=== PATIENT | female | born 1975 | race African-American/Black ===

== ENCOUNTER 2016-10-02 18:00 | Emergency (ER) | payer MEDICAID ==
[~2016-10-02] VITALS: Ht 162.6 cm; Wt 65.8 kg
--- NOTE | 2016-10-02 18:00 | NUR ---
pt ambulatory to er bed 12. presents w/ facial redness and swelling that started yestersday afternoon. pt denies sob. gowned and placed on monitor. awaiting md pires.
--- NOTE | 2016-10-02 18:42 | NUR ---
dr brown at bedside for eval.
[2016-10-02] MEDS ORDERED: FAMOTIDINE/PF INJ 20 MG/2 ML VIAL IV ONE ×2 (18:56→19:00)
[2016-10-02] MEDS ORDERED: methylPREDNISolone SOD SUCC 125 MG/2ML VIAL ONE (18:56)
[2016-10-02] MEDS ORDERED: diphenhydrAMINE HCL 50 MG/ML VIAL ONE (18:56)
[2016-10-02] MEDS ORDERED: IV NS 0.9% 1,000 ML BAG IV ONE (19:00)
[2016-10-02] MEDS ORDERED: diphenhydrAMINE HCL 50 MG/ML VIAL IV ONE (19:00)
[2016-10-02] MEDS ORDERED: methylPREDNISolone SOD SUCC 125 MG/2ML VIAL IV ONE (19:00)
--- NOTE | 2016-10-02 20:14 | NUR ---
Patient discharged to home in stable condition. Written and verbal after care instructions given. Patient verbalizes understanding of instruction.IV removed. Catheter intact and site benign. Pressure and 4x4 applied to site. No bleeding noted.
[2016-10-02 20:15] VITALS: BP 115/62
== END 2016-10-02 20:15 | disposition home or self-care (01) ==
LOC: ER 18:09
DX: T78.2XXA Anaphylactic shock, unspecified, initial encounter (principal); Y92.89 Other specified places as the place of occurrence of the external cause
CPT/HCPCS: A4606; J1200; J2930; J3490; J7030; Z7610